=== PATIENT | male | born 1985 | race Two or more races ===

== ENCOUNTER 2018-10-26 03:34 | Emergency (ER) | payer MEDICARE, OTHER ==
[2018-10-26 03:37] VITALS: RESP 18
--- NOTE | 2018-10-26 05:08 | ED PDOC ---
HPI: Psych/Substance Abuse Time Seen by Provider: 10/26/18 04:31 Chief Complaint (Nursing): Substance Abuse Chief Complaint (Provider): substance abuse History Per: Patient History/Exam Limitations: intoxication Additional Complaint(s): 33 y/o M with hx of dextrocardia and lumbar fusion who was BIBA due to abdominal pain. Pt walked into [place] [facility] stating that he had abdominal pain. Upon presentation to ED, pt stated to nurse that he wanted Meclizine for his dizziness and then admitted that he had just snorted heroine and wanted a sandwich and water as well as the TV remote. Pt seen sleeping comfortably in bed. Denies any current complaints of chest pain, dizziness, shortness of breath or abdominal pain. Past Medical History Reviewed: Historical Data, Nursing Documentation, Vital Signs Vital Signs: Last Vital Signs Temp 98.1 F 10/26/18 03:35 Pulse 74 10/26/18 03:35 Resp 18 10/26/18 03:35 BP 143/74 10/26/18 03:35 Pulse Ox 99 10/26/18 03:35 - Medical History Other PMH: dextrocardia - Family History Family History: States: Unknown Family Hx - Allergies Allergies/Adverse Reactions: Allergies Allergy/AdvReac Type Severity Reaction Status Date / Time No Known Allergies Allergy Verified 10/26/18 03:35 Review of Systems Constitutional: Negative for: Fever, Chills Cardiovascular: Negative for: Chest Pain, Palpitations Respiratory: Negative for: Shortness of Breath Gastrointestinal: Negative for: Nausea, Vomiting Physical Exam - Reviewed Nursing Documentation Reviewed: Yes Vital Signs Reviewed: Yes - Physical Exam Appears: Positive for: No Acute Distress (somnolent) Head Exam: Positive for: ATRAUMATIC Eye Exam: Positive for: Conjunctival injection (B/L) Cardiovascular/Chest: Positive for: Regular Rate, Rhythm Respiratory: Positive for: Normal Breath Sounds Gastrointestinal/Abdominal: Positive for: Normal Exam Neurologic/Psych: Positive for: Alert, Oriented (somnolent), Gait (stable) - ECG O2 Sat by Pulse Oximetry: 99 Medical Decision Making Medical Decision Making: Awaiting clinical sobriety Disposition - Clinical Impression Clinical Impression: Heroin abuse - Patient ED Disposition Is Patient to be Admitted: No - Disposition Referrals: [facility] [place] [Outside] Disposition: Routine/Home Disposition Time: 06:30 Condition: STABLE Additional Instructions: Recommend getting help for your heroine use. Instructions: Opioid Use Disorder Forms: [facility] (Indian) Print Language: ROMANSH
[2018-10-26 06:55] VITALS: BP 134/84; PULSE 70; TEMP 98.2
[2018-10-26 20:41] VITALS: O2SAT 99
== END 2018-10-26 07:16 | disposition home or self-care (01) ==
LOC: H.ER 03:34
DX: F11.10 Opioid abuse, uncomplicated (principal); Q24.0 Dextrocardia

== ENCOUNTER 2018-10-27 22:08 | Emergency (ER) | payer MEDICARE ==
[2018-10-27 22:11] VITALS: BP 155/70; PULSE 76; RESP 17; TEMP 98.1; O2SAT 100
--- NOTE | 2018-10-27 22:40 | ED PDOC ---
HPI: General Adult Time Seen by Provider: 10/27/18 22:20 Chief Complaint (Nursing): Medical Clearance Chief Complaint (Provider): clearance for incarceration Additional Complaint(s): 33 y/o M with hx of substance abuse, dextrocardia and bipolar disorder with psychotic features who was seen in ED yesterday for c/o abdominal pain but no complaints when seen by provider. He had used heroine and remained in ED for clinical sobriety. Pt brought in by [facility] for clearance for incarceration. Pt currently stating that he has abdominal pain, ZULUAGA, chest pain, neck pain, d izziness. Chest pain radiates to back, head, jaw, arm, legs. He further states that he is hearing voices telling him to steal and to hurt others, but he suppresses them. He denies SI. He is seeing visions of the grim reaper coming to get him. He states that he used some cocaine mixed with PCP possibly about 12hrs ago. He has not been on his methadone, which is why he used heroine yesterday. Past Medical History Vital Signs: Last Vital Signs Temp 98.1 F 10/27/18 22:09 Pulse 76 10/27/18 22:09 Resp 17 10/27/18 22:09 BP 155/70 H 10/27/18 22:09 Pulse Ox 100 10/27/18 22:09 - Medical History PMH: Back Problems - Surgical History Surgical History: Back Surgery (Lumbar fusion) - Family History Family History: States: Unknown Family Hx - Allergies Allergies/Adverse Reactions: Allergies Allergy/AdvReac Type Severity Reaction Status Date / Time No Known Allergies Allergy Verified 10/27/18 22:11 Physical Exam - Reviewed Nursing Documentation Reviewed: Yes Vital Signs Reviewed: Yes - Physical Exam Appears: Positive for: Non-toxic Head Exam: Positive for: ATRAUMATIC Eye Exam: Positive for: Conjunctival injection (B/L) Neck: Positive for: Normal Cardiovascular/Chest: Positive for: Regular Rate, Rhythm, Chest Non Tender. 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 Bard Blunt for finger pain ordered prior to d/c Stable medically and psychiatrically for incarceration. Disposition - Clinical Impression Clinical Impression: Schizophrenia, Substance abuse - Patient ED Disposition Is Patient to be Admitted: No Discussed With DrNemesio: Shama Mansfield - Disposition Referrals: [facility] [Outside] Disposition: Discharged/Transfer to Law Enforcement Disposition Time: 05:52 Condition: STABLE Additional Instructions: Patient is medically and psychiatrically stable for incarceration. Instructions: General (DC), Polysubstance Abuse (DC) Forms: [facility] (Nigerian) Print Language: CAMEROONIAN
[2018-10-27 23:24] LABS: BASO % 0.4 % (0.0-2.0); EOS # 0.1 K/uL (0.0-0.7); EOS % 0.7 % (0.0-4.0); HEMOGLOBIN 10.6 g/dL (12.0-18.0); LYMPH # 2.6 K/uL (1.0-4.3); LYMPH % 19.9 % (20.0-40.0); MEAN CELL VOLUME 85.8 fl (80.0-94.0); MEAN CORPUSCULAR HEMOGLOBIN 26.6 pg (27.0-31.0); MEAN CORPUSCULAR HGB CONC 31.1 g/dL (33.0-37.0); MEAN PLATELET VOLUME 7.8 fl (7.2-11.7); MONO # 1.3 K/uL (0.0-0.8); MONO % 10.2 % (0.0-10.0); NEUT # 8.9 K/uL (1.8-7.0); NEUT % 68.8 % (50.0-75.0); NRBC % 0.3 % (0.0-0.0); RBC 3.97 Mil/uL (4.40-5.90); RED CELL DISTRIBUTION WIDTH 16.5 % (11.5-14.5); WHITE BLOOD COUNT 12.9 K/uL (4.8-10.8)
[2018-10-27 23:33] LABS: BLOOD UREA NITROGEN 15 mg/dl (9-20); CALCIUM 8.8 mg/dL (8.4-10.2); GFR NON-AFRICAN AMERICAN > 60
[2018-10-28 00:29] LABS: BARBITURATES, UR NEGATIVE (NEGATIVE); BENZODIAZEPINES, UR NEGATIVE (NEGATIVE); OPIATES, UR POSITIVE (NEGATIVE); PHENCYCLIDINE, UR POSITIVE (NEGATIVE)
--- NOTE | 2018-10-28 14:54 | RAD ---
Date of service: 10/27/2018 HISTORY: chest pain COMPARISON: No prior. FINDINGS: LUNGS: No active pulmonary disease. PLEURA: No significant pleural effusion identified, no pneumothorax apparent. CARDIOVASCULAR: No aortic atherosclerotic calcification present. 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 No pulmonary vascular congestion. OSSEOUS STRUCTURES: No significant abnormalities. VISUALIZED UPPER ABDOMEN: Normal. OTHER FINDINGS: None. IMPRESSION: Distal cardia suggested. No acute infiltrate bilaterally or pulmonary vascular congestion evident.
--- NOTE | 2018-10-28 18:50 | CARD ---
APPROVED REPORT Date of service: 10/27/2018 EKG Measurement Heart [id number] <Conclusion> Normal sinus rhythm Lateral infarct, age undetermined Abnormal ECG
== END 2018-10-28 02:15 ==
LOC: H.ER 22:08
DX: F20.9 Schizophrenia, unspecified (principal); Z86.59 Personal history of other mental and behavioral disorders; F19.10 Other psychoactive substance abuse, uncomplicated
CPT/HCPCS: 71045; 80048; 82948; 84484; 85025; 93005; 99281; G0480